=== PATIENT | male | born 1930 | race Caucasian/White ===

== ENCOUNTER 2017-01-24 06:20 | Emergency (ER) | payer MEDICARE ==
[~2017-01-24] VITALS: Ht 167.6 cm; Wt 64.7 kg
[~2017-01-24 06:20] MED LIST: CEPH-459 PO
[2017-01-24 06:29] VITALS: BP 125/71; PULSE 89; RESP 20; TEMP 100.9; O2SAT 95
[2017-01-24 06:41] VITALS: TEMP 101.9
--- NOTE | 2017-01-24 07:03 | PD ---
HPI Chief Complaint: Injury Time Seen by Provider: 06:55 Travel History International Travel<30 days: No Contact w/Intl Traveler<30days: No Traveled to known affect area: No History of Present Illness HPI 86yo M with no significant PMH presents to the ED with c/o right arm pain and chills today. States he was fixing his car and hit his right forearm under his car 6 days ago. He had a skin tear and swelling/hematoma in his right forearm since hitting it. He has been placing bacitracin on the wound and swelling has gone down. However, he started having chills/fever today and pain has not improved. Denies any chest pain, sob, n/v, abdominal pain, focal weakness or numbness. Pt took a few days of aspirin for pain. Denies any anticoagulation but always gets hematoma with slight trauma. PFSH Past Medical History Cancer: No Diabetes: No Glaucoma: No Gout: Yes Hepatitis: No Hiatal Hernia: No Hypertension: Yes (NOT ON MEDS) Medical other: Yes Thyroid Disease: No Past Surgical History Abdominal Surgery: Yes (APPENDECTOMY) Appendectomy: Yes Oral Surgery: Yes (TONSILLECTOMY) Pacemaker: No Tonsillectomy: Yes Other Surgery: Yes (APPENDECTOMY AGE 59) Social History Alcohol Use: Yes (Occ.) Tobacco Use: No Substance Use: No Allergies-Medications (Allergen,Severity, Reaction): Coded Allergies: No Known Allergies (Verified , 01/24/17) Reported Meds & Prescriptions Reported Meds & Active Scripts Active No Active Prescriptions or Reported Medications Review of Systems Except as stated in HPI: all other systems reviewed are Neg Physical Exam Narrative GENERAL: 86yo M not in acute distress. SKIN: Warm and dry. HEAD: Atraumatic. Normocephalic. NECK: Trachea midline. No JVD. CARDIOVASCULAR: Regular rate and rhythm. No murmur appreciated. RESPIRATORY: No accessory muscle use. Clear to auscultation. Breath sounds equal bilaterally. GASTROINTESTINAL: Abdomen soft, non-tender, nondistended. No rebound tenderness or guarding. MUSCULOSKELETAL: RUE: +3cm skin tear right mid radius with mild edema distal to it that is ttp. +Discoloration in right forearm diffusely from the hematoma that has resolved. No fluctuance. Soft compartment. Radial pulse 2+. Sensation intact. No ttp distal radius/ulna. No ttp right elbow. FROM right elbow. NEUROLOGICAL: Awake and alert. No obvious cranial nerve deficits. Motor grossly within normal limits. Normal speech. PSYCHIATRIC: Appropriate mood and affect; insight and judgment normal. Data Data Last Documented VS Vital Signs Date Time Temp Pulse Resp B/P Pulse Ox O2 Delivery O2 Flow Rate FiO2 01/24/17 08:56 98.9 01/24/17 06:29 89 20 125/71 95 Orders Forearm (2vws) (01/24/17 ) Basic Metabolic Panel (Bmp) (01/24/17 07:01) Complete Blood Count With Diff (01/24/17 07:01) Blood Culture (01/24/17 07:01) Acetaminophen (Tylenol) (01/24/17 07:15) Clindamycin Inj (Cleocin Inj) (01/24/17 07:15) Tetanus/Diphtheria Tox Adult (Tetanus/Di (01/24/17 07:15) Lactic Acid Sepsis Protocol (01/24/17 07:14) Act Partial Throm Time (Ptt) (01/24/17 07:16) Prothrombin Time / Inr (Pt) (01/24/17 07:16) Sodium Chlorid 0.9% 500 Ml Inj (Ns 500 M (01/24/17 09:00) Labs Laboratory Tests Test 01/24/17 01/24/17 07:26 08:38 White Blood Count 13.7 TH/MM3 Red Blood Count 4.30 MIL/MM3 Hemoglobin 13.4 GM/DL Hematocrit 38.0 % Mean Corpuscular Volume 88.5 FL Mean Corpuscular Hemoglobin 31.3 PG Mean Corpuscular Hemoglobin 35.3 % Concent Red Cell Distribution Width 12.7 % Platelet Count 189 TH/MM3 Mean Platelet Volume 8.8 FL Neutrophils (%) (Auto) 94.2 % Lymphocytes (%) (Auto) 1.8 % Monocytes (%) (Auto) 1.5 % Eosinophils (%) (Auto) 1.2 % Basophils (%) (Auto) 1.3 % Neutrophils # (Auto) 12.9 TH/MM3 Lymphocytes # (Auto) 0.2 TH/MM3 Monocytes # (Auto) 0.2 TH/MM3 Eosinophils # (Auto) 0.2 TH/MM3 Basophils # (Auto) 0.2 TH/MM3 CBC Comment AUTO DIFF Differential Total Cells 100 Counted Neutrophils % (Manual) 77 % Band Neutrophils % 17 % Lymphocytes % 1 % Monocytes % 2 % Eosinophils % 3 % Neutrophils # (Manual) 12.9 TH/MM3 Differential Comment FINAL DIFF MANUAL Platelet Estimate NORMAL Platelet Morphology Comment NORMAL Red Cell Morphology Comment NORMAL Prothrombin Time 10.0 SEC Prothromb Time International 0.9 RATIO Ratio Activated Partial 23.3 SEC Thromboplast Time Sodium Level 139 MEQ/L Potassium Level 4.1 MEQ/L Chloride Level 105 MEQ/L Carbon Dioxide Level 25.5 MEQ/L Anion Gap 9 MEQ/L Blood Urea Nitrogen 17 MG/DL Creatinine 1.40 MG/DL Estimat Glomerular Filtration 48 ML/MIN Rate Random Glucose 127 MG/DL Lactic Acid Level 1.1 mmol/L Calcium Level 8.8 MG/DL MDM Medical Decision Making Medical Screen Exam Complete: Yes Emergency Medical Condition: Yes Interpretation(s) Laboratory Tests Test 01/24/17 01/24/17 07:26 08:38 White Blood Count 13.7 TH/MM3 (4.0-11.0) Red Blood Count 4.30 MIL/MM3 (4.50-5.90) Hemoglobin 13.4 GM/DL (13.0-17.0) Hematocrit 38.0 % (39.0-51.0) Mean Corpuscular Volume 88.5 FL (80.0-100.0) Mean Corpuscular Hemoglobin 31.3 PG (27.0-34.0) Mean Corpuscular Hemoglobin 35.3 % Concent (32.0-36.0) Red Cell Distribution Width 12.7 % (11.6-17.2) Platelet Count 189 TH/MM3 (150-450) Mean Platelet Volume 8.8 FL (7.0-11.0) Neutrophils (%) (Auto) 94.2 % (16.0-70.0) Lymphocytes (%) (Auto) 1.8 % (9.0-44.0) Monocytes (%) (Auto) 1.5 % (0.0-8.0) Eosinophils (%) (Auto) 1.2 % (0.0-4.0) Basophils (%) (Auto) 1.3 % (0.0-2.0) Neutrophils # (Auto) 12.9 TH/MM3 (1.8-7.7) Lymphocytes # (Auto) 0.2 TH/MM3 (1.0-4.8) Monocytes # (Auto) 0.2 TH/MM3 (0-0.9) Eosinophils # (Auto) 0.2 TH/MM3 (0-0.4) Basophils # (Auto) 0.2 TH/MM3 (0-0.2) CBC Comment AUTO DIFF Differential Total Cells 100 Counted Neutrophils % (Manual) 77 % (16-70) Band Neutrophils % 17 % (0-6) Lymphocytes % 1 % (9-44) Monocytes % 2 % (0-8) Eosinophils % 3 % (0-4) Neutrophils # (Manual) 12.9 TH/MM3 (1.8-7.7) Differential Comment FINAL DIFF MANUAL Platelet Estimate NORMAL (NORMAL) Platelet Morphology Comment NORMAL (NORMAL) Red Cell Morphology Comment NORMAL (NORMAL) Prothrombin Time 10.0 SEC (9.8-11.6) Prothromb Time International 0.9 RATIO Ratio Activated Partial 23.3 SEC Thromboplast Time (24.3-30.1) Sodium Level 139 MEQ/L (136-145) Potassium Level 4.1 MEQ/L (3.5-5.1) Chloride Level 105 MEQ/L (98-107) Carbon Dioxide Level 25.5 MEQ/L (21.0-32.0) Anion Gap 9 MEQ/L (5-15) Blood Urea Nitrogen 17 MG/DL (7-18) Creatinine 1.40 MG/DL (0.60-1.30) Estimat Glomerular Filtration 48 ML/MIN (>89) Rate Random Glucose 127 MG/DL (74-106) Lactic Acid Level 1.1 mmol/L (0.4-2.0) Calcium Level 8.8 MG/DL (8.5-10.1) Last Impressions Radius/Ulna X-Ray 01/24/17 0000 Signed Impressions: Service Date/Time: Tuesday, January 24, 2017 07:16 - CONCLUSION: Nonspecific soft tissue swelling. No bony abnormality demonstrated. Pacheco Prater MD Differential Diagnosis Fracture vs. cellulitis Narrative Course 86yo M with right arm cellulitis s/p hit his arm under the car while fixing it 6 days ago. Pt had a hematoma that has improved and swelling has also improved. However, he had a fever today and was brought in by daughter for evaluation. Pt is well appearing and does not have pain until you press on the wound. Pt does have fever in the ED and was given acetaminophen. Repeat temperature showed resolution of fever. Pt is not tachycardic nor tachypneic. Labs reviewed, leukocytosis at 13.7 with bandemia. Platelet normal. Pt is up to date on tetanus. Pt given clindamycin IV. Xray right forearm showed nonspecific tissue swelling. No bony abnormality demonstrated. Right forearm compartment is soft and hematoma has resolve. There is only discoloration and mild edema around the skin tear. It is mildly warm to touch. Pt does meet SIRS criteria for sepsis and I wanted to admit him for observation. However, pt does not want to stay and states that he lives very close to the hospital and will return if symptoms worsen. Creatinine mildly elevated at 1.40, pt given NS IVF. Lactic acid is 1.1. Pt is tolerating PO. He has good support system and his daughter will be with him. Pt instructed to follow up with PMD in 1-2 days. Return to the ED if symptoms worsen. Diagnosis Primary Impression: Cellulitis of arm, right Patient Instructions: General Instructions Additional Instructions: Please follow up with your PMD in 1-2 days. Return to the ED if persistent fever, worsening pain or swelling, or any worsening signs of infection. Med/Other Pt SpecificInfo: Prescription(s) given Scripts Acetaminophen 500 Mg [id number] Mg PO Q6H PRN (FEVER) #20 TAB Ref 0 Prov:Mary CarmenAlivia DO 01/24/17 Clindamycin 300 Mg [id number] Mg PO Q6H 7 Days Ref 0 Prov:Alivia Lentz DO 01/24/17 Disposition: 01 DISCHARGE HOME Condition: Stable Mary CarmenAlivia DO Jan 24, 2017 07:03
[2017-01-24] MEDS ORDERED: ACETAMINOPHEN 325 MG TAB PO ONE (07:15)
[2017-01-24] MEDS ORDERED: CLINDAMYCIN INJ 600 MG in SODIUM CHLORIDE 0.9% INJ 100 ML IV ONE (07:15)
[2017-01-24] MEDS ORDERED: TETANUS/DIPHTHERIA TOXOID ADULT 0.5 ML VIAL IM ONE (07:15)
--- NOTE | 2017-01-24 07:33 | RADHPO ---
EXAM DATE/TIME: 01/24/2017 07:16 [facility] COMPARISON: No previous studies available for comparison. INDICATIONS : Hit forearm on car, right forearm swelling, discoloration, pain, and fever MEDICAL HISTORY : None. SURGICAL HISTORY : None. ENCOUNTER: Initial ACUITY: 4 - 6 days PAIN SCORE: 2/10 LOCATION: Right forearm FINDINGS: There is soft tissue swelling along the distal radius. No fracture. No radiopaque foreign body. CONCLUSION: Nonspecific soft tissue swelling. No bony abnormality demonstrated. Pacheco Prater MD on January 24, 2017 at 7:31 Board Certified Radiologist. This report was verified electronically.
[2017-01-24 07:44] LABS: AUTOMATED NEUTROPHIL # 12.9 TH/MM3 (1.8-7.7); BASOPHIL # 0.2 TH/MM3 (0-0.2); BASOPHIL % 1.3 % (0.0-2.0); EOSINOPHIL # 0.2 TH/MM3 (0-0.4); EOSINOPHIL % 1.2 % (0.0-4.0); LYMPH % 1.8 % (9.0-44.0); LYMPHOCYTE # 0.2 TH/MM3 (1.0-4.8); MEAN CELL VOLUME 88.5 FL (80.0-100.0); MEAN CORPUSCULAR HEMOGLOBIN 31.3 PG (27.0-34.0); MEAN CORPUSCULAR HGB CONC 35.3 % (32.0-36.0); MONO % 1.5 % (0.0-8.0); NEUT % 94.2 % (16.0-70.0); PLATELET COUNT 189 TH/MM3 (150-450); RED CELL DISTRIBUTION WIDTH 12.7 % (11.6-17.2); WHITE BLOOD COUNT 13.7 TH/MM3 (4.0-11.0)
[2017-01-24 07:45] LABS: HEMO FLAGS AUTO DIFF
[2017-01-24 07:56] LABS: APTT (PATIENT) 23.3 SEC (24.3-30.1); INTERNATIONAL NORMALIZED RATIO 0.9 RATIO
[2017-01-24 08:11] LABS: BANDS 17 % (0-6); EOSINOPHILS 3 % (0-4); NEUTROPHIL # MANUAL DIFF 12.9 TH/MM3 (1.8-7.7); PLATELET ESTIMATE SMEAR NORMAL (NORMAL); PLATELET MORPHOLOGY NORMAL (NORMAL); POLYS (SEG NEUTROPHILS) 77 % (16-70); WBC DIFF SAMPLE 100
[2017-01-24 08:12] LABS: SCAN/DIFF FINAL DIFF MANUAL
[2017-01-24 08:56] VITALS: TEMP 98.9
[2017-01-24 08:57] LABS: POTASSIUM 4.1 MEQ/L (3.5-5.1)
[2017-01-24 09:00] LABS: BICARBONATE 25.5 MEQ/L (21.0-32.0)
[2017-01-24] MEDS ORDERED: SODIUM CHLORID 0.9% 500 ML INJ 500 ML IV ONE (09:00)
[2017-01-24] MEDS ORDERED: ACET500T3 PO (09:22)
[2017-01-24] MEDS ORDERED: CLIN1CAP6 PO (09:22)
[2017-01-24 10:04] VITALS: BP 105/56; TEMP 98.6
== END 2017-01-24 10:06 | disposition home or self-care (01) ==
LOC: PHED 06:20
DX: L03.113 Cellulitis of right upper limb (principal); R50.9 Fever, unspecified
CPT/HCPCS: 73090; 80048; 83605; 85007; 85027; 85610; 85730; 87040; 96361; 96365; 99283; J7040

== ENCOUNTER 2017-09-07 19:36 | Emergency (ER) | payer MEDICARE ==
[~2017-09-07] VITALS: Ht 167.6 cm; Wt 65.4 kg
[~2017-09-07 19:36] MED LIST changes: +ACET500T3 PO; -CEPH-459 PO; +CLIN1CAP6 PO
[2017-09-07 20:11] VITALS: BP 169/89; PULSE 75; RESP 16; TEMP 99.3; O2SAT 96
--- NOTE | 2017-09-07 21:30 | PD ---
HPI Chief Complaint: Fall Time Seen by Provider: 21:25 Travel History International Travel<30 days: No Contact w/Intl Traveler<30days: No Traveled to known affect area: No History of Present Illness HPI The patient is an 86-year-old male that was at a theater and got vertigo and lost balance and fell onto a road seats where he had a skin tear on his left arm near the elbow. There was no loss of consciousness. The patient has a long history of vertigo and takes scopolamine for motion sickness as needed. He does not take meclizine. He denies any headache. He has an appointment with Dr. Sarabia next week. [facility] Past Medical History Cancer: No Diabetes: No Diminished Hearing: No Glaucoma: No Gout: Yes Hepatitis: No Hiatal Hernia: No Hypertension: Yes (NOT ON MEDS) Thyroid Disease: No Tetanus Vaccination: < 5 Years Past Surgical History Abdominal Surgery: Yes Appendectomy: Yes Oral Surgery: Yes Pacemaker: No Tonsillectomy: Yes Other Surgery: Yes Social History Alcohol Use: Yes (SOCIALLY) Tobacco Use: No Substance Use: No Allergies-Medications (Allergen,Severity, Reaction): Coded Allergies: No Known Allergies (Verified , 01/24/17) Reported Meds & Prescriptions Reported Meds & Active Scripts Active Meclizine (Meclizine HCl) 25 Mg Tab 25 Mg PO TID PRN Acetaminophen 500 Mg Tab 500 Mg PO Q6H PRN Clindamycin (Clindamycin HCl) 300 Mg Cap 300 Mg PO Q6H 7 Days Review of Systems Except as stated in HPI: all other systems reviewed are Neg Physical Exam Narrative GENERAL: The patient is alert, oriented 3 in no apparent distress. He moves his head around without any problem or any vertigo at this time. SKIN: Focused skin assessment warm/dry. The left arm has a 10 cm laceration that was Steri-Stripped, this is a thin skin-type laceration. HEAD: Atraumatic. Normocephalic. EYES: Pupils equal and round. No scleral icterus. No injection or drainage. ENT: No nasal bleeding or discharge. Mucous membranes pink and moist. Modified Hallpike maneuver fails to reproduce any vertigo. NECK: Trachea midline. No JVD. There is no meningismus. CARDIOVASCULAR: Regular rate and rhythm. No murmur appreciated. RESPIRATORY: No accessory muscle use. Clear to auscultation. Breath sounds equal bilaterally. GASTROINTESTINAL: Abdomen soft, non-tender, nondistended. Hepatic and splenic margins not palpable. MUSCULOSKELETAL: No obvious deformities. No clubbing. No cyanosis. No edema. NEUROLOGICAL: Awake and alert. No obvious cranial nerve deficits. Motor grossly within normal limits. Normal speech. PSYCHIATRIC: Appropriate mood and affect; insight and judgment normal. Data Data Last Documented VS Vital Signs Date Time Temp Pulse Resp B/P (MAP) Pulse Ox O2 Delivery O2 Flow Rate FiO2 09/07/17 21:34 Room Air 09/07/17 20:11 99.3 75 16 169/89 (115) 96 Orders Orders Electrocardiogram (09/07/17 21:25) [facility] Medical Decision Making Medical Screen Exam Complete: Yes Emergency Medical Condition: Yes Medical Record Reviewed: Yes Interpretation(s) The EKG shows sinus rhythm with a rate of [address] elevation or depression. Differential Diagnosis Vertigo, electrolyte disorder, renal insufficiency, anemia, infection, skin laceration Narrative Course It is now 9:36 PM and the patient does not want to do blood work here, he wants to wait and do it at Dr. Sarabia office. The blood work will be canceled. Impression: Thin skin laceration, vertigo Procedures Procedure Narrative The 10 cm laceration was Steri-Stripped successfully and a protective bandage put over it. Diagnosis Primary Impression: Laceration of forearm, left Additional Impression: Chronic vertigo Additional Instructions: As we discussed, when the Steri-Strips come off, put a line of antibiotic ointment over the laceration. Always keep the laceration bandaged and to protect it from hitting again. Also, I will write a prescription for meclizine to see if this helps your vertigo. It is one tablet 3 times daily. Follow-up with Dr. Sarabia as scheduled. Med/Other Pt SpecificInfo: Prescription(s) given Scripts Meclizine (Meclizine) 25 Mg Tab 25 MG PO TID Y for VERTIGO, #30 TAB 0 Refills Prov: Balwinder Bishop MD 09/07/17 Disposition: 01 DISCHARGE HOME Condition: Stable Balwinder Bishop MD Sep 07, 2017 21:30
[2017-09-07] MEDS ORDERED: MECL-62 PO (21:40)
[2017-09-07 22:28] VITALS: BP 158/68
--- NOTE | 2017-09-08 23:23 | EKG ---
Date Performed: 09/07/2017 Time Performed: 21:48:57 PTAGE: 86 years EKG: Sinus rhythm INFERIOR MYOCARDIAL INFARCTION ABNORMAL ECG NO PREVIOUS TRACING DOCTOR: Hunter George Interpretating Date/Time 09/08/2017 23:22:11
== END 2017-09-07 22:29 | disposition home or self-care (01) ==
LOC: PHED 19:36
DX: S51.812A Laceration without foreign body of left forearm, initial encounter (principal); R42 Dizziness and giddiness; W18.39XA Other fall on same level, initial encounter; I10 Essential (primary) hypertension
CPT/HCPCS: 93005